=== PATIENT | male | born 1955 | race Caucasian/White ===

== ENCOUNTER 2021-04-03 20:38 | Emergency (ER) | payer OTHER ==
[~2021-04-03] VITALS: Ht 175.3 cm; Wt 104.3 kg
[2021-04-03] MEDS ORDERED: TAMBOCOR 100 M100 MG PO (20:50)
[2021-04-03] MEDS ORDERED: METOPROLOL SUC100 MG PO (20:50)
[2021-04-03] MEDS ORDERED: LISINOPRIL20 MG PO (20:50)
[2021-04-03] MEDS ORDERED: HYDROCHLOROTH12.5 M1 PO (20:50)
[2021-04-03 22:27] LABS: ABSOLUTE NEUTROPHILS 4.2 thou/uL (1.4-8.2); BASOPHILS 0.6 % (0.0-2.0); EOSINOPHILS 4.9 % (0.0-3.0); HEMATOCRIT 42.7 % (42.0-52.0); HEMOGLOBIN 14.4 gm/dL (14.0-18.0); LYMPHOCYTES 23.4 % (24.0-44.0); MCH 30.7 pg (26.0-34.0); MCHC 33.8 g/dL (28.0-37.0); MCV 90.8 fL (80.0-100.0); MONOCYTES 10.5 % (1.0-8.0); PLATELET COUNT 337 thou/uL (150-400); POLYS 60.6 % (36.0-66.0); RDW 13.1 % (10.5-14.5)
[2021-04-03 22:33] LABS: ANION GAP 11 mmol/L (7-16); BUN 24 mg/dL (7-18); CALCIUM 8.6 mg/dL (8.5-10.1); CHLORIDE 102 mmol/L (98-107); CO2 27 mmol/L (21-32); CREATININE 0.9 mg/dL (0.7-1.3); GLUCOSE 132 mg/dL (74-106); POTASSIUM 3.8 mmol/L (3.5-5.1); SODIUM 140 mmol/L (136-145)
[2021-04-03 22:43] LABS: ALBUMIN 3.8 g/dL (3.4-5.0); SGOT 21 U/L (15-37); SGPT 34 U/L (30-65); TOTAL BILIRUBIN 0.4 mg/dL (0.2-1.0); TOTAL PROTEIN 7.5 g/dL (6.4-8.2); TROPONIN-I <0.06 ng/mL (<0.06)
[2021-04-03 23:38] VITALS: BP 125/75
--- NOTE | 2021-04-04 07:38 | EKG ---
[place] [address] [facility] [place] [address] ELECTROCARDIOGRAM REPORT Name: BRITTANEY FERNANDEZ Room #: [facility]P [facility] [id number] Admission: 04/03/21 Attend Phys: Discharge: 04/03/21 Date of : 55 Report #: [id number] [facility] ED Test Date: 2021-04-03 Test Time: 20:45:44 Pat Name: BRITTANEY FERNANDEZ Department: Room: Gender: Java Software: ANEL : 1955 Requested By: Marissa Ku Order Number: [id number] MD: Ronn Caban Measurements Intervals [place] Rate: 77 P: 5 MS: 206 QRS: -47 QRSD: 95 T: 17 QT: 386 QTc: 437 Interpretive Statements Sinus rhythm Abnormal R-wave progression, late transition Inferior infarct, old No previous ECG available for comparison Electronically Signed On 04-04-2021 7:38:26 CDT by Ronn Caban [email or web address] <ELECTRONICALLY SIGNED> By: Ronn Caban MD, [facility] 04/04/21 0738 [id number] 2045 Ronn Caban MD, FACC /EPI
== END 2021-04-03 23:39 | disposition home or self-care (01) ==
LOC: ER 20:38
PROVIDERS: Physician Assistant
DX: R00.2 Palpitations (principal); I48.91 Unspecified atrial fibrillation; Z79.899 Other long term (current) drug therapy